=== PATIENT | female | born 1935 | race Two or more races ===

== ENCOUNTER 2022-06-12 14:50 | Emergency (ER) | payer OTHER ==
[~2022-06-12] VITALS: Ht 152.4 cm; Wt 81.6 kg
== END 2022-06-12 17:52 | disposition home or self-care (01) ==
LOC: ER 14:50
DX: B00.2 Herpesviral gingivostomatitis and pharyngotonsillitis (principal)

== ENCOUNTER 2022-06-16 17:01 | Emergency (ER) | payer OTHER ==
[~2022-06-16] VITALS: Ht 152.4 cm; Wt 86.2 kg
[2022-06-16] MEDS ORDERED: ZESTRIL2.5 MG PO (17:15)
[2022-06-16] MEDS ORDERED: MEMANTINE H2 MG/1 ML PO (17:15)
[2022-06-16] MEDS ORDERED: PRAVASTATIN SOD10 MG PO (17:15)
[2022-06-16] MEDS ORDERED: CHILDREN'S FLO5.9 ML NS (17:16)
[2022-06-16] MEDS ORDERED: VITAMIN C60 MG PO (17:16)
[2022-06-16] MEDS ORDERED: VITAMIN D31 ML MC (17:16)
[2022-06-16] MEDS ORDERED: IRO-PLEX LIQUI120 ML PO (17:17)
[2022-06-16] MEDS ORDERED: XOPENEX0.63 MG/3 IH (17:17)
== END 2022-06-16 22:14 | disposition home or self-care (01) ==
LOC: ER 17:01
DX: J44.1 Chronic obstructive pulmonary disease with (acute) exacerbation (principal); Z88.2 Allergy status to sulfonamides; E11.9 Type 2 diabetes mellitus without complications; I10 Essential (primary) hypertension; E78.00 Pure hypercholesterolemia, unspecified; F03.90 Unspecified dementia, unspecified severity, without behavioral disturbance, psychotic disturbance, mood disturbance, and anxiety

== ENCOUNTER 2022-11-12 03:21 | Inpatient (IN) | payer OTHER ==
[~2022-11-12] VITALS: Ht 152.4 cm; Wt 88.5 kg
[~2022-11-12 03:21] MED LIST: CHILDREN'S FLO5.9 ML NS; IRO-PLEX LIQUI120 ML PO; MEMANTINE H2 MG/1 ML PO; PRAVASTATIN SOD10 MG PO; VITAMIN C60 MG PO; VITAMIN D31 ML MC; XOPENEX0.63 MG/3 IH; ZESTRIL2.5 MG PO
[2022-11-12] MEDS ORDERED: ESCITALOPRAM OX10 MG PO (05:04)
[2022-11-12] MEDS ORDERED: STIOLTO RESPIMAT4 GM IH (05:04)
[2022-11-12] MEDS ORDERED: DONEPEZIL HCL10 MG PO (05:04)
[2022-11-16] MEDS ORDERED: ADVIL DUAL ACT1 EACH PO (17:35)
== END 2022-11-27 21:28 | disposition expired | DRG 682 ==
LOC: ER 03:21 → MEDJ 18:42 → SEC-K 18:42 → MEDJ 19:34
PROVIDERS: ADMIT Internal Medicine; ATTEND Internal Medicine
PROC: BT43ZZZ Ultrasonography of Bilateral Kidneys (ICD-10-PCS; principal; 2022-11-12)
PROC: 3E0F7GC Introduction of Other Therapeutic Substance into Respiratory Tract, Via Natural or Artificial Opening (ICD-10-PCS; 2022-11-12)
PROC: 4A12X4Z Monitoring of Cardiac Electrical Activity, External Approach (ICD-10-PCS; 2022-11-12)
PROC: 5A0955A Assistance with Respiratory Ventilation, Greater than 96 Consecutive Hours, High Flow/Velocity Cannula (ICD-10-PCS; 2022-11-12)
PROC: 30233N1 Transfusion of Nonautologous Red Blood Cells into Peripheral Vein, Percutaneous Approach (ICD-10-PCS; 2022-11-13)
PROC: 02H633Z Insertion of Infusion Device into Right Atrium, Percutaneous Approach (ICD-10-PCS; 2022-11-15)
PROC: BW4GZZZ Ultrasonography of Pelvic Region (ICD-10-PCS; 2022-11-19)
PROC: BB24ZZZ Computerized Tomography (CT Scan) of Bilateral Lungs (ICD-10-PCS; 2022-11-21)
PROC: BW21ZZZ Computerized Tomography (CT Scan) of Abdomen and Pelvis (ICD-10-PCS; 2022-11-21)
DX: N17.8 Other acute kidney failure (principal); J96.21 Acute and chronic respiratory failure with hypoxia; J44.1 Chronic obstructive pulmonary disease with (acute) exacerbation; E87.4 Mixed disorder of acid-base balance; B37.0 Candidal stomatitis; E87.0 Hyperosmolality and hypernatremia; G93.49 Other encephalopathy; F05 Delirium due to known physiological condition; R44.2 Other hallucinations; E86.0 Dehydration; E87.6 Hypokalemia; R13.19 Other dysphagia; D63.1 Anemia in chronic kidney disease; D50.0 Iron deficiency anemia secondary to blood loss (chronic); D69.59 Other secondary thrombocytopenia; R63.0 Anorexia; R93.89 Abnormal findings on diagnostic imaging of other specified body structures; I12.9 Hypertensive chronic kidney disease with stage 1 through stage 4 chronic kidney disease, or unspecified chronic kidney disease; I25.10 Atherosclerotic heart disease of native coronary artery without angina pectoris; N18.9 Chronic kidney disease, unspecified; G30.8 Other Alzheimer's disease; F02.80 Dementia in other diseases classified elsewhere, unspecified severity, without behavioral disturbance, psychotic disturbance, mood disturbance, and anxiety; Z66 Do not resuscitate